=== PATIENT | male | born 1995 | race Caucasian/White ===

== ENCOUNTER 2017-01-15 02:23 | Emergency (ER) | payer SELFPAY ==
--- NOTE | 2017-01-15 08:28 | ER ---
ADMIT: 01/15/2017 RM/LOC: ER [facility] MR#: [id number] [address] [facility] [address] [place] [id number] RODOLFO JULIAN SELMA [address] [place] [id number] Emergency Room Report SEX: M AGE: 21 : 1995 DATE: 01/15/2017 The patient is a 21-year-old male, complaining of depression due to estrangement from mother who is dying. Denies any suicidal ideation, previously treated for depression with good success. Recommended follow up with [facility] for ongoing psychiatric care. Tony Newby MD/ alfie JOB #: [id number] CC: Tony Newby MD, Attending Physician Brandy Abreu MD, Family Physician Brandy Abreu MD
== END 2017-01-15 04:16 | disposition home or self-care (01) ==
LOC: ER 02:23
DX: F32.0 Major depressive disorder, single episode, mild (principal); F17.210 Nicotine dependence, cigarettes, uncomplicated